=== PATIENT | female | born 1965 | race Caucasian/White ===

== ENCOUNTER 2016-09-04 10:06 | Inpatient (IN) | payer BC ==
[~2016-09-04] VITALS: Ht 170.2 cm; Wt 57.9 kg
[2016-09-04] MEDS ORDERED: HALOPERIDOL LACTATE 5 MG/ML VIAL IM ONE (10:45)
[2016-09-04] MEDS ORDERED: LORazepam 2 MG/ML VIAL IM ONE (10:45)
[2016-09-04] MEDS ORDERED: DiphenhydrAMINE HCL 50 MG/ML VIAL IM ONE (10:45)
[2016-09-04 11:14] LABS: BASOPHILS % (AUTO) 0.7 % (0.0-2.0); EOSINOPHILS % (AUTO) 0.3 % (1.0-6.0); HEMOGLOBIN 12.2 g/dL (12.0-16.0); LYMPHOCYTES # (AUTO) 0.9 K/uL (1.0-4.8); LYMPHOCYTES % (AUTO) 12.6 % (22.0-44.0); MEAN CORPUSCULAR HEMOGLOBIN 32.3 pg (26.0-34.0); MEAN CORPUSCULAR HGB CONC 34.8 G/dL (31.0-37.0); MEAN CORPUSCULAR VOLUME 93 fL (80-100); MONOCYTES # (AUTO) 0.5 K/uL (0.1-1.0); NEUTROPHILS # (AUTO) 5.9 K/uL (1.8-7.7); NEUTROPHILS % (AUTO) 79.4 % (40.0-70.0); PLATELET COUNT (AUTO) 293 K/uL (150-450); RED BLOOD CELL COUNT(AUTO) 3.76 MIL/uL (4.00-5.20); RED CELL DISTRIBUTION WIDTH 12.9 % (11.5-14.5); WHITE BLOOD COUNT (AUTO) 7.5 K/uL (4.5-11.0)
[2016-09-04] MEDS ORDERED: HALOPERIDOL 5 MG TABLET PO PRN (11:15)
[2016-09-04] MEDS ORDERED: LORazepam 2 MG TABLET PO PRN (11:15)
[2016-09-04] MEDS ORDERED: ZOLPIDEM TARTRATE 10 MG TABLET PO PRN (11:15)
[2016-09-04 11:31] LABS: ALANINE AMINOTRANSFERASE 33 U/L (12-78); ANION GAP 13 mmol/L (8-16); ASPARTATE AMINOTRANSFERASE 47 U/L (15-37); BILIRUBIN,TOTAL 0.4 mg/dL (0.1-1.0); CALCIUM, TOTAL 9.5 mg/dL (8.8-10.5); CARBON DIOXIDE 24 mmol/L (22-29); CHLORIDE 102 mmol/L (98-107); CREATININE 0.55 mg/dL (0.60-1.30); GLOMERULAR FILTR. RATE CALC > 60 mL/min (>60); SODIUM SERUM 139 mmol/L (136-145); TOTAL PROTEIN, SERUM 6.9 g/dL (6.4-8.2); UREA NITROGEN, BLOOD 7 mg/dL (7-18)
[2016-09-04] MEDS ORDERED: POTASSIUM CHLORIDE 20 MEQ ER TABLET PO ONE (12:30)
[2016-09-04 14:33] VITALS: BP 137/93
[2016-09-04 15:08] VITALS: BP 137/93
[2016-09-04 16:25] VITALS: BP 119/73
[2016-09-05 06:41] VITALS: BP 121/74
[2016-09-05 08:16] VITALS: BP 122/92
[2016-09-05 08:43] LABS: CHOL/HDL RATIO 2.9 (3.9-5.7); POTASSIUM 4.1 mmol/L (3.5-5.1)
[2016-09-05] MEDS ORDERED: BACITRACIN 28.4 GM OINTMENT TP PRN (10:15)
[2016-09-05] MEDS ORDERED: MAG HYDROX/AL HYDROX/SIMETH ES 30 ML SUSPENSION UDCUP PO PRN (10:15)
[2016-09-05] MEDS ORDERED: IBUPROFEN 600 MG TABLET PO PRN (10:15)
[2016-09-05] MEDS ORDERED: ACETAMINOPHEN 325 MG TABLET PO PRN (10:15)
[2016-09-05] MEDS ORDERED: BENZOCAINE/MENTHOL LOZENGE MM PRN (10:15)
[2016-09-05] MEDS ORDERED: ALBUTEROL SULFATE HFA 90 MCG/PUFF 8 GM INHALER IH PRN (10:15)
[2016-09-05] MEDS ORDERED: PETROLATUM,WHITE 71 GM JELLY TP PRN (10:15)
[2016-09-05] MEDS: DULoxetine HCL 20 MG CAPSULE PO SCH (10:15)
[2016-09-05] MEDS ORDERED: ONDANSETRON HCL 4 MG TABLET PO PRN (10:15)
[2016-09-05] MEDS ORDERED: MAGNESIUM HYDROXIDE SUSPENSION 30 ML UDCUP PO PRN (10:15)
[2016-09-05] MEDS ORDERED: CloNIDine HCL 0.1 MG TABLET PO PRN (10:15)
[2016-09-05 16:18] VITALS: BP 116/75
[2016-09-05] MEDS: LOPERAMIDE HCL 2 MG CAPSULE PO PRN (19:52)
[2016-09-06 04:13] VITALS: BP 120/76
[2016-09-06] MEDS: LOPERAMIDE HCL 2 MG CAPSULE PO PRN (06:10)
[2016-09-06] MEDS: DULoxetine HCL 20 MG CAPSULE PO SCH ×2 (08:07→08:27)
[2016-09-06 09:27] VITALS: BP 118/88
[2016-09-06 16:04] VITALS: BP 126/82
[2016-09-07 07:05] VITALS: BP 110/74
[2016-09-07] MEDS: DULoxetine HCL 20 MG CAPSULE PO SCH (08:08)
[2016-09-07 08:28] VITALS: BP 115/70
[2016-09-07] MEDS ORDERED: DULO20CA30 PO (08:33)
[2016-09-07] MEDS: LOPERAMIDE HCL 2 MG CAPSULE PO PRN (12:46)
== END 2016-09-07 13:45 | disposition home or self-care (01) | DRG 885 ==
LOC: EEVIPCON 10:08 → EMS 10:08 → B3A 12:38
DX: F29 Unspecified psychosis not due to a substance or known physiological condition (principal); F43.10 Post-traumatic stress disorder, unspecified; E87.6 Hypokalemia; M79.7 Fibromyalgia; F41.9 Anxiety disorder, unspecified; F12.90 Cannabis use, unspecified, uncomplicated; Z91.011 Allergy to milk products; Z91.018 Allergy to other foods; Z78.1 Physical restraint status
CPT/HCPCS: 84132; 96372; 99285; G0480; J1200; J1630; J2060; Q0162